=== PATIENT | male | born 1985 | race Caucasian/White ===

== ENCOUNTER 2022-10-10 18:15 | Emergency (ER) | payer BC, SELFPAY ==
--- NOTE | 2022-10-10 18:17 | ED.ABDPAIN ---
HPI - Abdominal Pain General Chief Complaint: Abdominal Pain Stated Complaint: Abdominal Pain/Nausea/ Vomiting/Diarrhea Time Seen by Provider: 10/10/22 18:35 Source: patient and RN notes reviewed Mode of arrival: ambulatory Limitations: no limitations History of Present Illness HPI narrative: 37-year-old male presents to the [facility] with complaints of generalized body aches, nausea vomiting and diarrhea that started at 1:00 a.m. this morning. Had subsided by 11:00 a.m.. Is able to tolerate fluids without issue. Patient states that he ate raising canes chicken yesterday. Requesting a work note Related Data Home Medications Medication Instructions Recorded Confirmed No Home Medications 10/10/22 10/10/22 Allergies Allergy/AdvReac Type Severity Reaction Status Date / Time No Known Allergies Allergy Unknown Verified 10/10/22 18:43 Review of Systems Review of Systems: All systems reviewed & are unremarkable except as noted in HPI and below Constitutional: Constitutional: Reports no additional constitutional complaints Eyes: Eyes: Reports no additional eye complaints ENT: Reports system reviewed and no additional complaints, except as documented Cardiovascular: Cardiovascular: Reports no additional cardiovascular complaints, Denies chest pain and Denies dyspnea Respiratory: Respiratory: Reports no additional respiratory complaints, Denies chest congestion, Denies cough and Denies dyspnea Gastrointestinal: Gastrointestinal: Reports as per HPI, Denies abdominal pain, Reports diarrhea, Reports nausea and Reports vomiting Musculoskeletal: Musculoskeletal: Reports no additional musculoskeletal complaints Integumentary/Breasts: Skin/Breast: Reports system reviewed and no additional complaints, except as docu Neurologic: Reports system reviewed and no additional complaints, except as documented Psychiatric: Psychiatric: Reports no additional psychiatric complaints Allergic/Immunologic: Allergic/Immunologic: Reports no additional allergic/immunologic complaints PMFSH Comments At the time of my signature, I reviewed and agree with the nursing past medical, surgical, social, and family history. There is no relevant family history pertinent to the patient complaint. Exam Const: General: cooperative, healthy appearing, comfortable, no acute distress, well developed, alert and well nourished Nutritional Appearance: well nourished and obese Orientation/consciousness: patient oriented x3 Limitations: no limitations HENMT: Head: normal to inspection Ears: hearing grossly normal bilaterally and external ears normal Face/Nose/Sinus: Normal external nose present, Normal nares present, Normal nasal mucous membranes and turbinates present and normal facial exam Face and sinus: normal facial exam Mouth: Yes Normal oral and palatal mucosa present, Yes lip normal and Yes moist mucous membranes Throat: posterior oropharynx normal and uvula midline Eyes: General: appearance normal, both eyes and all related structures Alignment and Position: alignment normal Periorbital: periorbital findings normal Conjunctivae: conjunctivae normal Pupils: Equal, round and reactive pupils present EOM: EOMs intact bilaterally Neck: Neck: normal visual inspection, full ROM, no lymphadenopathy and no meningeal signs Chest: Chest palpation & inspection: normal inspection of the chest Resp: Effort & Inspection: normal respiratory effort and able to speak in complete sentences Auscultation: clear to auscultation bilaterally, no crackles, no rales, no rhonchi and no wheezes Cardio: Rate: regular rate Rhythm: regular rhythm GI: GI Palp: Yes Soft to palpation, No Tenderness to palpation present (GI) and No Guarding due to palpation present (GI) Auscultation: Hyperactive bowel sounds present Back/Spine/Pelvis: Cervical Spine: cervical ROM normal Thoracic/Lumbar Spine: No thoracic spinal tenderness Skin: General skin exam: normal color and no ra
[2022-10-10 18:29] VITALS: BP 147/82; PULSE 108; RESP 18; TEMP 37.4; O2SAT 98
== END 2022-10-10 18:50 | disposition home or self-care (01) ==
PROVIDERS: Emergency Provider Nurse Practitioner
DX: R11.2 Nausea with vomiting, unspecified (principal); R19.7 Diarrhea, unspecified
CPT/HCPCS: 99211; 99212; G0463

== ENCOUNTER 2023-10-17 18:53 | Emergency (ER) | payer OTHER, BC, SELFPAY ==
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
[2023-10-17 19:07] VITALS: BP 150/98; PULSE 100; RESP 20; TEMP 36.7; O2SAT 97
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
[2023-10-17 20:42] VITALS: BP 146/95; PULSE 67; RESP 18; TEMP 36.4; O2SAT 99
== END 2023-10-17 20:43 | disposition home or self-care (01) ==
PROVIDERS: Emergency Provider Physician Assistant
DX: S13.4XXA Sprain of ligaments of cervical spine, initial encounter (principal); V43.52XA Car driver injured in collision with other type car in traffic accident, initial encounter
CPT/HCPCS: 72125; 99284

== ENCOUNTER 2024-04-16 09:42 | Outpatient (CLI) | payer OTHER, BC, SELFPAY ==
--- NOTE | 2024-04-16 11:30 | NEURO_ITS ---
Impression: # Complains of left upper extremity numbness. # Left ulnar neuropathy across the elbow. # Needle/EMG exam not requested. Nerve Conduction Studies Anti Sensory Summary Table Stim Site NR Peak (ms) P-T Amp (?V) Site1 Site2 Delta-P (ms) Dist (cm) Jason (m/s) Left Median Anti Sensory (2-3nd Digit) Wrist 3.4 13.6 Wrist 2-3nd Digit 3.4 14.0 41 Wrist 3.4 53.2 Wrist 2-3nd Digit 3.4 14.0 41 Left Radial Anti Sensory (Base 1st Digit) Wrist 1.8 42.8 Wrist Base 1st Digit 1.8 0.0 Left Ulnar Anti Sensory (5th Digit) Wrist 2.5 17.4 Wrist 5th Digit 2.5 14.0 56 Motor Summary Table Stim Site NR Onset (ms) O-P Amp (mV) Site1 Site2 Delta-0 (ms) Dist (cm) Jason (m/s) Left Median Motor (Abd Poll Brev) Wrist 3.1 1.0 Elbow Wrist 5.7 31.0 54 Elbow 8.8 0.6 Left Ulnar Motor (Abd Dig Minimi) Wrist 2.0 7.6 A Elbow Wrist 5.9 30.0 51 A Elbow 7.9 6.7 B Elbow Wrist 4.6 24.0 52 B Elbow 6.6 7.3 F Wave Studies NR F-Lat (ms) L-R F-Lat (ms) Left Median (Mrkrs) (Abd Poll Brev) 29.67 Left Ulnar (Mrkrs) (Abd Dig Min) 29.90 MTDD
== END 2024-04-16 09:43 | disposition home or self-care (01) ==
PROVIDERS: Visit Provider Orthopaedic Surgery
DX: G56.22 Lesion of ulnar nerve, left upper limb (principal)
CPT/HCPCS: 95909

== ENCOUNTER 2024-07-18 09:00 | Emergency (ER) | payer BC, SELFPAY ==
[2024-07-18 09:12] VITALS: BP 173/98; PULSE 79; RESP 19; TEMP 37.2; O2SAT 100
--- NOTE | 2024-07-18 09:28 | ED_ITS ---
HPI - Extremity Problem General Chief complaint: Extremity Problem,Nontraumatic Stated complaint: Right Calf/Foot Pain Time Seen by Provider: 07/18/24 09:29 Source: patient, RN notes reviewed and old records reviewed Mode of arrival: ambulatory Limitations: no limitations History of Present Illness HPI Narrative: Patient presents accompanied by his . 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 He is presenting today with swelling to bilateral lower legs, right worse than left. He reports that symptoms began 5 days ago. States that swelling subsides when he has legs elev ated, is worse when he has been on his feet, but has never completely resolved. He denies any injury or trauma. He voices no other concerns or complaints at this time. Of note his blood pressure is extremely elevated today, he does not follow with a primary care provider. This was discussed in detail. Related Data Allergies Allergy/AdvReac Type Severity Reaction Status Date / Time No Known Allergies Allergy Unknown Verified 10/10/22 18:43 Review of Systems Review of Systems: All systems reviewed & are unremarkable except as noted in HPI and below Constitutional: Constitutional: Reports no additional constitutional complaints ENT: Reports system reviewed and no additional complaints, except as documented Cardiovascular: Cardiovascular: Reports no additional cardiovascular complaints, Denies chest pain, Denies irregular heart rhythm, Denies claudication, Reports leg ulcers (right leg), Reports leg edema, Denies dyspnea and Denies dyspnea on exertion Respiratory: Respiratory: Reports no additional respiratory complaints Gastrointestinal: Gastrointestinal: Reports no additional gastrointestinal complaints Integumentary/Breasts: Skin/Breast: Reports skin pain (Right leg) PMFSH Comments At the time of my signature, I reviewed and agree with the nursing past medical, surgical, social, and family history. There is no relevant family history pertinent to the patient complaint. Exam Const: General: cooperative, no acute distress, alert and awake Orientation/consciousness: oriented to person, oriented to place and oriented to time HENMT: Head: normal to inspection Resp: Effort & Inspection: normal respiratory effort and able to speak in complete sentences Auscultation: clear to auscultation bilaterally, no crackles, no rales, no rhonchi and no wheezes Cardio: Palpation: normal PMI Rate: regular rate Rhythm: regular rhythm Heart sounds: S1 normal heart sound present and S2 normal heart sound present Skin: Wounds: wounds noted (Shallow wound with scab to right berger, surrounding erythema and warmth) Neuro: General: oriented to person, oriented to place and oriented to time Cranial nerves: Yes CN's II-XII intact bilaterally Extrem: Right lower extremity: edema Details: non-pitting and 1+ Left lower extremity: edema Details: non-pitting and 1+ Psych: Appearance: grossly normal Thought process: Normal thought process present Insight: Good insight present (Psych) Judgement: Good judgement present (Psych) Course Course Level of Care: Express Care Visit Vital Signs Vital signs: Vital Signs Temperature 98.9 F 07/18/24 09:12 Pulse Rate 79 07/18/24 09:12 Respiratory Rate 19 07/18/24 09:12 Blood Pressure 173/98 H 07/18/24 09:12 Pulse Oximetry 100 07/18/24 09:12 Oxygen Delivery Room Air 07/18/24 09:12 Temperature 98.9 F 07/18/24 09:12 Pulse Rate 79 07/18/24 09:12 Respiratory Rate 19 07/18/24 09:12 Blood Pressure 173/98 H 07/18/24 09:12 Pulse Oximetry 100 07/18/24 09:12 Oxygen Delivery Room Air 07/18/24 09:12 Reviewed MDM - Extremity (Nontraumatic) MDM Narrative Medical decision making narrative: Right leg with evidence of cellulitis. There is bilateral edema, right slightly worse than left. Negative Homans sign. Exam consistent with cellulitis, patient nontoxic appearing. Stable for discharge home on p.o. antibiotics. Elevated blood pressure is noted. Patient does not recall the last time that his blood pressure was checked. It was discussed with patient how very important is to follow with a primary care provider, especially in light of his elevated blood pressure. Strict emergency department precautions were discussed with patient and his . Discharge instructions reviewed with patient, as well as provided in writing per nursing staff. The instructions also include specific and strict return/GO TO THE ER as well as f/u information. All questions have been answered, and the patient deny any further questions with discharge and discharge plan. Some parts of this dictation were generated by voice recognition software and may contain typographical and/or grammatical inaccuracies. Differential Diagnosis Differential diagnosis: Likely gout, cellulitis, superficial thrombophlebitis, lower extremity edema and deep vein thrombosis of lower extremity Discharge Plan Discharge Clinical Impression: Blood pressure elevated without history of HTN Cellulitis Qualifiers: Site of cellulitis: extremity Site of cellulitis of extremity: lower extremity Laterality: right Qualified Code(s): L03.115 - Cellulitis of right lower limb Patient Disposition: Home, Self-Care Condition: Stable Instructions: Antibiotic Form, Cellulitis (ED), Hypertension (ED) Additional Instructions: Take medications as prescribed. Elevate legs when practical. Emergency department immediately for new or worse symptoms. It is imperative that you follow with a primary care provider. Normal blood pressure is 120/80. Yours is measuring 173/98 Patient Language: Mosotho Prescriptions: New doxycycline hyclate 100 mg capsule 100 mg PO BID Qty: 20 0RF No Action cyclobenzaprine 10 mg tablet 10 mg PO HS PRN (Reason: muscle spasm) Qty: 10 0RF Follow-up/Referrals: PHYSICIAN,INTERACTIVE DESIGNER [Primary Care Provider] - Stand Alone Forms: Work/School Release IP Time of Disposition: 10:06
== END 2024-07-18 10:07 | disposition home or self-care (01) ==
PROVIDERS: Emergency Provider Nurse Practitioner Family
DX: R03.0 Elevated blood-pressure reading, without diagnosis of hypertension (principal); L03.115 Cellulitis of right lower limb
CPT/HCPCS: 99213; G0463

== ENCOUNTER 2024-09-24 18:56 | Emergency (ER) | payer BC, SELFPAY ==
[2024-09-24 19:00] VITALS: BP 152/69; PULSE 96; RESP 16; TEMP 38.3; O2SAT 98
--- NOTE | 2024-09-24 19:26 | ED.URI ---
HPI - URI/Sore Throat General Chief Complaint: Upper Respiratory Infection Stated Complaint: Cough/Bodyache Time Seen by Provider: 09/24/24 19:27 Source: patient, RN notes reviewed and old records reviewed Mode of arrival: ambulatory Limitations: no limitations History of Present Illness HPI Narrative: Patient presents with complaints of flu-like symptoms that began yesterday. He has been taking [id number] medications. States minimal relief from this. He has not had any medications since this morning. He appears uncomfortable, but is not in any obvious distress at this time Related Data Allergies Allergy/AdvReac Type Severity Reaction Status Date / Time No Known Allergies Allergy Unknown Verified 09/24/24 18:58 Review of Systems Review of Systems: All systems reviewed & are unremarkable except as noted in HPI and below Constitutional: Constitutional: Reports no additional constitutional complaints, Reports chills, Reports fever(s) and Reports headache(s) ENT: Reports system reviewed and no additional complaints, except as documented, Reports nasal congestion and Reports nasal discharge Cardiovascular: Cardiovascular: Reports no additional cardiovascular complaints Respiratory: Respiratory: Reports no additional respiratory complaints and Reports cough Gastrointestinal: Gastrointestinal: Reports no additional gastrointestinal complaints PMFSH Comments At the time of my signature, I reviewed and agree with the nursing past medical, surgical, social, and family history. There is no relevant family history pertinent to the patient complaint. Exam Const: General: cooperative, no acute distress, alert and awake Orientation/consciousness: oriented to person, oriented to place and oriented to time HENMT: Head: normal to inspection Ears: TM's normal bilaterally Mouth: Yes moist mucous membranes Resp: Effort & Inspection: normal respiratory effort and able to speak in complete sentences Auscultation: clear to auscultation bilaterally, no crackles, no rales, no rhonchi and no wheezes Cardio: Palpation: normal PMI Rate: regular rate Rhythm: regular rhythm Heart sounds: S1 normal heart sound present and S2 normal heart sound present Neuro: General: oriented to person, oriented to place and oriented to time Cranial nerves: Yes CN's II-XII intact bilaterally Psych: Appearance: grossly normal Thought process: Normal thought process present Insight: Good insight present (Psych) Judgement: Good judgement present (Psych) Course Course Level of Care: Express Care Visit Vital Signs Vital signs: Vital Signs Temperature 101.0 F H 09/24/24 19:00 Pulse Rate 96 09/24/24 19:00 Respiratory Rate 16 09/24/24 19:00 Blood Pressure 152/69 H 09/24/24 19:00 Pulse Oximetry 98 09/24/24 19:00 Oxygen Delivery Room Air 09/24/24 19:00 Temperature 101.0 F H 09/24/24 19:00 Pulse Rate 96 09/24/24 19:00 Respiratory Rate 16 09/24/24 19:00 Blood Pressure 152/69 H 09/24/24 19:00 Pulse Oximetry 98 09/24/24 19:00 Oxygen Delivery Room Air 09/24/24 19:00 Reviewed MDM - URI/Sore Throat MDM Narrative Medical decision making narrative: Reassuring physical exam. Positive influenza. Tamiflu prescribed after discussion with patient. Supportive care measures discussed. Discharge instructions reviewed with patient, as well as provided in writing per nursing staff. The instructions also include specific and strict return/GO TO THE ER as well as f/u information. All questions have been answered, and the patient deny any further questions with discharge and discharge plan. Some parts of this dictation were generated by voice recognition software and may contain typographical and/or grammatical inaccuracies. Differential Diagnosis Differential diagnosis: Likely upper respiratory infection, otitis media, viral infection and influenza Medical Records Attestation: I reviewed the patient's medical records. Lab Data Attestation: I reviewed the patient's lab results. Labs: Lab Results 09/24/24 Range/Units 19:03 POC Influenza A Ag Positive (Negative) POC Influenza B Ag Negative (Negative) POC SARS CoV-2 Ag Negative (Negative) Discharge Plan Discharge Clinical Impression: Influenza, Elevated blood pressure reading Patient Disposition: Home, Self-Care Condition: Stable Instructions: Antibiotic Form Additional Instructions: Continue [id number] medications to treat symptoms. Take Tamiflu as prescribed. Follow-up with primary care provider. Emergency department for new or worsening symptoms Patient Language: Luxembourgish Prescriptions: New oseltamivir [Tamiflu] 75 mg capsule 75 mg PO Q12H 5 Days Qty: 10 0RF Follow-up/Referrals: PHYSICIAN,CHILD CARE NURSE [Primary Care Provider] - Stand Alone Forms: Work/School Release IP Time of Disposition: 19:34
[2024-09-24 19:38] LABS: EDCOVIDSCREEN Negative (Negative); EDINFLUASCREEN Positive (Negative); EDINFLUBSCREEN Negative (Negative)
== END 2024-09-24 19:35 | disposition home or self-care (01) ==
PROVIDERS: Emergency Provider Nurse Practitioner Family
DX: J10.1 Influenza due to other identified influenza virus with other respiratory manifestations (principal); R03.0 Elevated blood-pressure reading, without diagnosis of hypertension; Z20.822 Contact with and (suspected) exposure to COVID-19
CPT/HCPCS: 87426; 87804; 99213; G0463